=== PATIENT | female | born 1960 | race Two or more races ===

== ENCOUNTER 2022-01-04 16:41 | Inpatient (IN) | payer MEDICAID, OTHER ==
[~2022-01-04] VITALS: Ht 154.9 cm; Wt 73.4 kg
[2022-01-04] MEDS ORDERED: cloNIDine HCL 0.1 MG TAB PO ONE (17:30)
[2022-01-04] MEDS ORDERED: HYDROcodone-ACET 10/325MG TAB PO ONE (17:30)
[2022-01-04] MEDS ORDERED: hydrALAZINE HCL 20 MG/ML VL IV ONE (18:15)
[2022-01-04 18:23] LABS: Basophils # (auto) 0 10 ^3/uL (0-0.2); Basophils % (auto) 0.4 % (0.0-2.0); Eosinophils # (auto) 0.2 10 ^3/uL (0-0.8); Eosinophils % (auto) 2.3 % (0.0-7.0); Hematocrit 44.3 % (36.0-46.0); Hemoglobin 14.9 g/dL (12.2-16.2); Lymphocytes # (auto) 2.1 10 ^3/uL (0.4-5.4); Lymphocytes % (auto) 24.4 % (10.0-50.0); Mean Corpuscular Hemoglobin 29.4 pg (28.0-32.0); Mean Corpuscular Hgb Conc. 33.6 g/dL (32.0-36.0); Mean Corpuscular Volume 87.6 fL (80.0-100.0); Monocytes # (auto) 0.8 10 ^3/uL (0-1.3); Neutrophils # (auto) 5.6 10 ^3/uL (1.6-8.6); Neutrophils % (auto) 63.9 % (37.0-80.0); Nucleated Red Blood Cells % 0.1 %; Red Blood Cells 5.06 10^6/uL (4.0-5.20); Red Cell Distribution Width 13.8 % (11.8-14.3); White Blood Cell 8.8 10^3/uL (4.4-10.8)
[2022-01-04 18:34] LABS: Albumin 2.8 g/dL (3.4-5.0); Calcium 8.4 mg/dL (8.5-10.1); Potassium 3.6 mmol/L (3.5-5.1)
[2022-01-04 18:35] LABS: BUN/Creatinine Ratio 13.1
[2022-01-04 18:38] LABS: Bilirubin, Total 0.4 mg/dL (0.2-1.0); Total Protein 7.4 g/dL (6.4-8.2)
[2022-01-04] MEDS ORDERED: SODIUM CHLORIDE 0.9% 500 ML IV ONE (19:30)
[2022-01-04] MEDS ORDERED: TEMAZEPAM 15 MG CAP PO PRN (21:00)
[2022-01-04] MEDS ORDERED: ACETAMINOPHEN 325 MG TAB PO PRN (21:00)
[2022-01-04] MEDS ORDERED: NITROGLYCERIN 0.4 MG SL TAB SL PRN (21:00)
[2022-01-04] MEDS ORDERED: ONDANSETRON HCL 4 MG/2 ML VIAL IV PRN (21:00)
[2022-01-04] MEDS ORDERED: MORPHINE SULFATE INJ 2 MG/ml SYRG IV PRN (21:00)
[2022-01-04] MEDS: cloNIDine HCL 0.1 MG TAB PO PRN (22:24)
[2022-01-05] MEDS: cloNIDine HCL 0.1 MG TAB PO PRN ×3 (05:05→17:15)
[2022-01-05 05:20] LABS: Basophils # (auto) 0 10 ^3/uL (0-0.2); Basophils % (auto) 0.3 % (0.0-2.0); Eosinophils # (auto) 0.1 10 ^3/uL (0-0.8); Eosinophils % (auto) 1.7 % (0.0-7.0); Hematocrit 41.2 % (36.0-46.0); Hemoglobin 14.1 g/dL (12.2-16.2); Lymphocytes # (auto) 2.5 10 ^3/uL (0.4-5.4); Lymphocytes % (auto) 30.2 % (10.0-50.0); Mean Corpuscular Hemoglobin 30.2 pg (28.0-32.0); Mean Corpuscular Hgb Conc. 34.3 g/dL (32.0-36.0); Monocytes # (auto) 0.5 10 ^3/uL (0-1.3); Monocytes % (auto) 6.6 % (0.0-12.0); Neutrophils % (auto) 61.2 % (37.0-80.0); Nucleated Red Blood Cells % 0.2 %; Red Blood Cells 4.68 10^6/uL (4.0-5.20); Red Cell Distribution Width 13.8 % (11.8-14.3); White Blood Cell 8.2 10^3/uL (4.4-10.8)
[2022-01-05] MEDS ORDERED: DEXTROSE (50%) 50ML SYRG IV PRN (06:30)
[2022-01-05] MEDS: ACCU-CHEK COMFORT CURVE STRIP VI SCH ×4 (06:34→22:13)
[2022-01-05] MEDS: InsuLIN REG 1unit/0.01ml Soln (100units/ml) SC SCH ×4 (06:37→22:14)
[2022-01-05] MEDS: PANTOPRAZOLE 40 MG TAB PO SCH (09:32)
[2022-01-05] MEDS: ENOXAPARIN SOD 30 MG/0.3 ML SYRINGE SC SCH (09:32)
[2022-01-05] MEDS: ASPirin 81 mg TAB PO SCH (09:32)
[2022-01-05] MEDS ORDERED: LISINOPRIL 10 MG TAB PO SCH (10:00)
[2022-01-05] MEDS: LISINOPRIL 10 MG TAB PO SCH ×2 (12:24→22:16)
[2022-01-05 15:50] VITALS: BP 170/71
[2022-01-05 17:37] VITALS: BP 170/71
[2022-01-05 18:44] VITALS: BP 159/87
[2022-01-05 22:00] VITALS: BP 184/83
[2022-01-05] MEDS: cloNIDine HCL 0.1 MG TAB PO SCH (22:16)
[2022-01-06 05:00] VITALS: BP 186/70
[2022-01-06] MEDS: cloNIDine HCL 0.1 MG TAB PO PRN ×2 (05:46→11:44)
[2022-01-06] MEDS: InsuLIN REG 1unit/0.01ml Soln (100units/ml) SC SCH ×4 (06:41→22:33)
[2022-01-06] MEDS: ACCU-CHEK COMFORT CURVE STRIP VI SCH ×4 (06:41→22:20)
[2022-01-06] MEDS: ENOXAPARIN SOD 30 MG/0.3 ML SYRINGE SC SCH (08:53)
[2022-01-06] MEDS: ASPirin 81 mg TAB PO SCH (08:53)
[2022-01-06] MEDS: PANTOPRAZOLE 40 MG TAB PO SCH (08:53)
[2022-01-06] MEDS: LISINOPRIL 10 MG TAB PO SCH ×2 (08:54→22:20)
[2022-01-06] MEDS: cloNIDine HCL 0.1 MG TAB PO SCH ×3 (08:54→22:19)
[2022-01-06 09:00] VITALS: BP 169/65
[2022-01-06 13:00] VITALS: BP 189/89
[2022-01-06] MEDS ORDERED: CLON0.1T PO (14:27)
[2022-01-06] MEDS ORDERED: METF-371 PO (14:27)
[2022-01-06] MEDS ORDERED: HYDR25TA5 PO (14:27)
[2022-01-06] MEDS ORDERED: BLOO1KIT60 XX (14:27)
[2022-01-06] MEDS ORDERED: LISI-716 PO (14:27)
[2022-01-06 15:43] LABS: Cholesterol 228 mg/dL (< 200); HDL Cholesterol 52 mg/dL (40-59); LDL Cholesterol 153 mg/dL (< 100); Triglycerides 184 mg/dL (< 150)
[2022-01-06 16:00] LABS: Albumin 2.3 g/dL (3.4-5.0); Calcium 8.8 mg/dL (8.5-10.1); Potassium 4.3 mmol/L (3.5-5.1)
[2022-01-06 16:03] LABS: BUN/Creatinine Ratio 15.5; Bilirubin, Total 0.3 mg/dL (0.2-1.0); Total Protein 6.7 g/dL (6.4-8.2)
[2022-01-06 17:00] VITALS: BP 183/74
[2022-01-06] MEDS ORDERED: metFORMIN HYDROCHLORIDE 850 MG TAB PO SCH (18:00)
[2022-01-06 22:00] VITALS: BP 150/60
[2022-01-06] MEDS: HCTZ 25 MG TAB PO SCH (22:19)
[2022-01-07 05:00] VITALS: BP 194/74
[2022-01-07] MEDS: cloNIDine HCL 0.1 MG TAB PO SCH ×2 (05:25→14:05)
[2022-01-07] MEDS: ACCU-CHEK COMFORT CURVE STRIP VI SCH ×3 (06:32→17:00)
[2022-01-07] MEDS: InsuLIN REG 1unit/0.01ml Soln (100units/ml) SC SCH ×3 (06:33→17:00)
[2022-01-07 07:05] LABS: Potassium 4.2 mmol/L (3.5-5.1)
[2022-01-07 07:09] LABS: BUN/Creatinine Ratio 14.3; Calcium 8.7 mg/dL (8.5-10.1)
[2022-01-07] MEDS: PANTOPRAZOLE 40 MG TAB PO SCH (08:49)
[2022-01-07] MEDS: ASPirin 81 mg TAB PO SCH (08:49)
[2022-01-07] MEDS: LISINOPRIL 10 MG TAB PO SCH (08:49)
[2022-01-07] MEDS: ENOXAPARIN SOD 30 MG/0.3 ML SYRINGE SC SCH (08:50)
[2022-01-07] MEDS: HCTZ 25 MG TAB PO SCH (08:50)
[2022-01-07 09:00] VITALS: BP 160/89
[2022-01-07] MEDS ORDERED: ATOR10TA PO (09:30)
[2022-01-07] MEDS ORDERED: cloNIDine HCL 0.1 MG TAB PO ONE (12:15)
[2022-01-07 13:00] VITALS: BP 221/81
[2022-01-07] MEDS ORDERED: LORazepam 2MG/ML-1ML VIAL IV ONE (13:30)
[2022-01-07] MEDS ORDERED: LORazepam 0.5 MG TAB PO ONE (14:00)
[2022-01-07 15:59] VITALS: BP 136/81
[2022-01-07 16:37] VITALS: BP 136/69
[2022-01-08] MEDS ORDERED: DIPH50TA9 PO (17:26)
== END 2022-01-07 17:30 | disposition home or self-care (01) | DRG 683 ==
LOC: ER 16:41 → OVERFLOW 21:00 → TELE-CENTR 01-05 15:40
PROVIDERS: ADMIT Nurse Practitioner; ATTEND Hospitalist
DX: I13.10 Hypertensive heart and chronic kidney disease without heart failure, with stage 1 through stage 4 chronic kidney disease, or unspecified chronic kidney disease (principal); E44.0 Moderate protein-calorie malnutrition; I16.0 Hypertensive urgency; E11.21 Type 2 diabetes mellitus with diabetic nephropathy; E11.22 Type 2 diabetes mellitus with diabetic chronic kidney disease; E11.65 Type 2 diabetes mellitus with hyperglycemia; E66.9 Obesity, unspecified; Z20.822 Contact with and (suspected) exposure to COVID-19; N18.32 Chronic kidney disease, stage 3b; Z88.2 Allergy status to sulfonamides; Z68.30 Body mass index [BMI] 30.0-30.9, adult; Z79.899 Other long term (current) drug therapy
CPT/HCPCS: 36415; 71045; 80048; 80053; 80061; 82962; 83036; 83516; 83880; 84484; 85025; 86225; 86235; 93005; 93306; 93971; 96361; 96374; 99291; G0378; J1815

== ENCOUNTER 2022-01-08 16:20 | Emergency (ER) | payer MEDICAID ==
[~2022-01-08] VITALS: Ht 154.9 cm; Wt 70.0 kg
[~2022-01-08 16:20] MED LIST: ATOR10TA PO; BLOO1KIT60 XX; CLON0.1T PO; HYDR25TA5 PO; LISI-716 PO; METF-371 PO
[2022-01-08] MEDS ORDERED: DIPH50TA9 PO (17:26)
[2022-01-08 17:29] VITALS: BP 154/71
== END 2022-01-08 17:45 | disposition home or self-care (01) ==
LOC: ER 16:20
DX: I10 Essential (primary) hypertension (principal); F51.05 Insomnia due to other mental disorder; Z79.899 Other long term (current) drug therapy; Z88.2 Allergy status to sulfonamides
CPT/HCPCS: 82962; 93005